=== PATIENT | female | born 2000 | race Hispanic/Latino ===

== ENCOUNTER 2023-05-19 16:21 | Emergency (ER) | payer OTHER, SELFPAY ==
[2023-05-19 17:35] LABS: Bilirubin Neg (Negative); Blood, Urine 25 (Negative); Clarity Clear (Clear); Glucose, Urine (Dipstick) Normal (Negative); Ketone, Urine Negative (Negative); Leukocyte 100 (Negative); Nitrite Negative (Negative); Protein, Urine (Dipstick) Negative (Neg-Trace); Specific Gravity, Urine 1.015 (1.005-1.030); Urobilinogen Normal mg/dL (Less than 2)
[2023-05-19 17:38] LABS: Pregnancy Test - Urine (BHCG) Negative (Negative); Pregu Control Background? CLEAR/WHITE (CLR/WHITE); Pregu Control Bar Appear? YES (CONTROL BAR); Specific Gravity 1.015 (1.002-1.036)
[2023-05-19] MEDS ORDERED: traMADol HCl 50 MG TAB ONE (18:03)
[2023-05-19 18:37] LABS: Bacteria/HPF 2+ HPF (None Seen); CAUTI Indications for Culture Pelvic or flank pain; Squamous Epithelial 0-3 HPF (0-3)
[2023-05-19 18:39] LABS: Urine Culture Reflex Yes Yes
[2023-05-19] MEDS ORDERED: Lidocaine 1% PF 5 ML VIAL ONE (19:36)
[2023-05-19] MEDS ORDERED: cefTRIAXone (ROCEPHIN) 500 MG VIAL ONE (19:36)
== END 2023-05-19 20:10 | disposition home or self-care (01) ==
LOC: CSHERS 16:21
DX: N39.0 Urinary tract infection, site not specified (principal)
CPT/HCPCS: 74176; 81001; 81025; 87077; 87086; 87186; 96372; J0696